=== PATIENT | male | born 1980 | race Caucasian/White ===

== ENCOUNTER 2024-09-08 21:23 | Inpatient (IN) | payer OTHER, SELFPAY ==
[2024-09-08 15:22] VITALS: BP 134/95
[2024-09-08 16:20] LABS: % Basophils 0.2 % (0-2); % Eosinophils 0.3 % (0-6); % Immature Granulocytes 0.4 % (0-0.5); % Lymphocytes 12.2 % (20.5-51.1); % Neutrophils 79.9 % (42.2-75.2); Absolute Eosinophils 0.1 10^3/uL (0-0.7); Absolute Immature Granulocytes 0.1 10^3/uL (0-0.05); Absolute Lymphocytes 2.2 10^3/uL (1.2-3.4); Absolute Monocytes 1.3 10^3/uL (0.1-0.6); Absolute Neutrophils 14.2 10^3/uL (1.4-6.5); Hematocrit 41.8 % (39.0-52.0); Hemoglobin 14.6 g/dL (13.0-18.0); Mean Corp Hgb Conc. 34.9 g/dL (33.0-37.0); Mean Corpuscular Hgb 30.8 pg (27.0-31.0); Mean Corpuscular Volume 88.2 fL (80.0-94.0); Mean Platelet Volume 9.4 fL (7.4-10.4); Nucleated Red Blood Cells % 0 % (-); Platelet Count 273 10^3/uL (130-400); Red Blood Cell Count 4.74 10^6/uL (4.70-6.10); White Blood Cell Count 17.8 10^3/uL (4.8-10.8)
[2024-09-08 16:25] LABS: ALT (SGPT) 21 U/L (0-50); AST (SGOT) 18 U/L (17-59); Albumin 4.5 g/dl (3.5-5.0); Alkaline Phosphatase 83 U/L (38-126); Blood Urea Nitrogen 8 mg/dl (9-20); Calcium 9.2 mg/dl (8.4-10.2); Carbon Dioxide 26 mmol/L (22-30); Chloride 103 mmol/L (98-107); Glucose 102 mg/dl (70-99); Sodium 139 mmol/L (135-145); Total Bilirubin 0.7 mg/dl (0.2-1.3); Total Protein 6.7 g/dl (6.3-8.2); eGFR > 60.00
[2024-09-08 17:41] VITALS: BMI 33.6
[2024-09-08 17:49] VITALS: BP 115/72
--- NOTE | 2024-09-08 19:16 | ED.GENMED ---
History of Present Illness
General
Chief Complaint: Skin Problem
Source: patient
Exam Limitations: none
Time Seen by Provider: 09/08/24 17:06
Nursing documentation reviewed up to this point in time: agreed with
History of Present Illness
History of Present Illness:
43-year-old male with history as document presents to the emergency room for evaluation of rectal pain. Patient is history of rectal abscess and fistula and has been followed with Dr. Sheffield in the past. He says that he was shoveling snow earlier
this week and when he went to bed he noticed some slight pain in his rectum. He says this pain has worsened since then yesterday went to urgent care was told he has developing abscess and started on Bactrim and he took 1 dose. This morning pain
was much more severe and he discussed with Dr. Sheffield was recommended to come to the ER for evaluation. He denies any fevers or chills. He denies any abdominal pain. He denies any drainage. Denies any other complaints.
Past History
Past History
ED Past Medical History: Other (perianal abscess)
ED Past Surgical History: Other (hernia as child, perianal abscess drainages)
Social History
Tobacco: Smoker
Drug: None
Personal:
Living: with family
Employment: Employed
Review of Systems
Review of Systems
All Other Systems: ROS reviewed and negative except as documented in HPI and ROS
Constitutional: Denies fever or chills
Respiratory: Denies trouble breathing
Cardiac: Denies chest pain
ABD/GI: Reports other (Rectal pain); Denies abdominal pain or vomiting
: Denies flank pain
Musculoskeletal: Denies neck pain or back pain
Neurological: Denies headache
Phy Exam
Physical Exam
Physical Exam:
General: Awake, alert, oriented x3; no acute distress
Head: Normocephalic, atraumatic
Eyes: Conjunctiva normal
Throat: Airway intact, handling secretions
Neck: Trachea midline, supple without meningismus
Lungs: Breathing comfortably no distress
Heart: Tachycardia
Abd: Soft, non distended, nontender
Rectal: Patient has area of warmth and induration, redness at approximately 5 o'clock position directly adjacent to the anal verge and this area is exquisitely tender to the touch, no pustular drainage noted, no erythema the surrounding buttock
Neuro: No gross deficits
Extremities: Warm well-perfused
Scores
Heart Failure Risk
Heart Failure Risk Score: Not Applicable
Heart Score for Chest Pain Patients
STEMI patient?: Not applicable
Withdrawal Assessment of Alcohol
Withdrawal Assessment Completed?: Not applicable
Course
Orders/Labs/Results
Orders:
Orders
09/08/24 15:49
CMP [Comprehensive Metabolic Panel] Urgent
Complete Blood Count/With Diff Urgent
09/08/24 17:35
CT Pelvis With Iv Contrast Urgent
Comment:
Reason For Exam: rectal pain, c/f abscess
09/08/24 17:48
Blood Culture Q30M
DALY Source: Blood/Venous
Specimen Description:
Blood Culture Q30M
DALY Source: Blood/Venous
Specimen Description:
09/08/24 17:49
Diphenhydramine [Benadryl] 50 mg IV NOW STA
Hydrocortisone Sod Succinate [Solu-Cortef] 200 mg IV NOW STA
09/08/24 19:15
ColoRectal Surgery Consult Urgent
Consulting Provider: Gt Sheffield
Was physician already notified: Yes
Piperacillin/Tazo 3.375 Gram [Zosyn] 3.375 gram in 50 ml IV NOW
09/08/24 19:16
Ketorolac [Toradol] 15 mg IV NOW STA
Abnormal Lab Results
09/08/24
15:49
WBC 17.8 H 10^3/uL
(4.8-10.8)
Abs Immat Gran (auto) 0.1 H 10^3/uL
(0-0.05)
Absolute Neuts (auto) 14.2 H 10^3/uL
(1.4-6.5)
Absolute Monos (auto) 1.3 H 10^3/uL
(0.1-0.6)
Neutrophils % 79.9 H %
(42.2-75.2)
Lymphocytes % 12.2 L %
(20.5-51.1)
BUN 8 L mg/dl
(9-20)
Glucose 102 H mg/dl
(70-99)
09/08/24 15:49
09/08/24 15:49
Vital Signs
Initial and Last Documented VS:
Initial Vital Signs
Temp Pulse Resp BP Pulse Ox
37.6 C 110 16 134/95 99
09/08/24 15:22 09/08/24 15:22 09/08/24 15:22 09/08/24 15:22 09/08/24 15:22
Last Documented Vital Signs
Temp Pulse Resp BP Pulse Ox
37.6 C 93 18 115/72 97
09/08/24 15:22 09/08/24 17:49 09/08/24 17:49 09/08/24 17:49 09/08/24 17:49
MDM/Problems Addressed
Differential Diagnosis Includes:
Perirectal abscess
MDM/Problems Addressed:
43-year-old male presents with rectal pain consistent with prior pararectal abscesses. Took 1 dose of Bactrim last night but symptoms have been worsening and so he was referred by colorectal surgeon. Vitals and exam as above�notably tachycardic.
He had labs sent in triage which showed a leukocytosis to 17.8. Send off blood cultures. Check CT pelvis. Discussed with colorectal surgery agreed with CT if significant abscess plan for admission for OR drainage.
CT shows 3.6 cm complex perianal abscess. Will treat with Zosyn. Discussed with colorectal surgery will admit to hospitalist service, n.p.o. at midnight with plan for OR tomorrow. Case discussed with hospitalist.
*Radiology
Radiology exam reviewed: radiology read reviewed
*Pulse Oximetry
Patient hypoxic: no
*Critical Care Note
Total Time (30-74mins, 75-104mins- exclusive of procedures): Not Applicable
Data Reviewed
Review of Other/Old Records Reveals: Labs and Records
Source: patient, records and physician
Patient Management
Discussion with other providers: Hospitalist (Discussed with hospitalist) and [employer] (Discussed with colorectal surgeon)
Escalation/DeEscalation of care consider admission/obs:
Admission indicated
ED Attending Note
-
Portions of this chart may have been created with voice recognition software.� Occasional wrong word or��sound alike� substitutions may have occurred due to the inherent limitations of voice recognition software.
Discharge Plan
Departure
Patient Disposition: Admit
Date of Disposition: 09/08/24
Time of Disposition: 19:21
Admit to doctor: Emeka
Presentation/result/management discussed w/ accepting MD/DO: Hospitalist
Discharge Problem:
Perianal abscess
Prescriptions:
No Action
No Current Medications
0
Referrals:
UNKNOWN - PT DOES,NOT KNOW [Family Provider] -
Interventions
Interventions:
*Risk Screen - Suicide Last Done: 09/08/24 15:22
*General Assessment Last Done: 09/08/24 15:22
*Neglect/Abuse Screening Last Done: 09/08/24 15:22
ED- Fall Risk Assessment Last Done: 09/08/24 17:42
*ED COVID-19 Vaccine History Last Done: 09/08/24 15:22
ED-Skin Assessment Last Done: 09/08/24 18:00
Discharge Date and Time
Print Language: ECUADOREAN
[2024-09-08] MEDS: TORADOL 15 MG IV (19:22)
[2024-09-08] MEDS: ZOSYN 50 IV (19:23)
[2024-09-08 19:26] VITALS: BP 119/75
--- NOTE | 2024-09-08 20:46 | HPS.HSE ---
Family Physician
-
Family Physician: NOT KNOW UNKNOWN - PT DOES
Chief Complaint
-
Rectal pain
History of Present Illness
This is a 42-year-old with past medical history significant for rectal abscess and fistula who has been followed by surgery in the past.
Patient reports that he had noticed some slight pain in his rectal area starting about a week ago. Initially it was mild and he ignored it. The pain worsened since yesterday and went to urgent care when he was told that he with developed abscess
and was started on Bactrim. He took a dose of Bactrim yesterday and this morning without improvement. The pain was worse. He denied having any fevers or chills. He denied having any constipation or diarrhea. He had no nausea or vomiting. He
discussed this with Dr. Krueger who recommended ED evaluation.
Patient reports a similar episode about 2 or 3 years ago that required surgical intervention.
In the emergency department he had a Tmax of 100.9, blood pressure was 120/75 and was satting 97% on room air. Labs showed leukocytosis to 17,000 with normal hemoglobin and platelet. Electrolytes BUN/creatinine were within the normal range and
unremarkable. CT of the pelvis showed 3.6 cm complex right anterolateral perianal abscess.
Medical History
Past Medical History
Past Medical History: Reports Other (rectal abscess )
Past Surgical History: Reports Other (rectal abscess surgery)
Social History
Tobacco: Smoker
Alcohol: Occasional
Drug: None
Personal:
Living: With Family
Employment: Employed
Family History
Family History: Not pertinent
Allergies / Home Medications
Allergies reflects when Allergies were last updated in [employer].
Home Medications with original date entered in [employer]
Allergy/Medication List:
Allergies
Allergy/AdvReac Type Severity Reaction Status Date / Time
No Known Allergies Allergy Verified 09/08/24 17:56
Home Medications
No Meds [No Current Medications] 09/08/24
Review of Systems
-
History Source: Patient
Constitutional: Reports No Symptoms
EENT: Reports No Symptoms
Respiratory: Reports No Symptoms
Cardiac: Reports No Symptoms
Abdomen/GI: Reports Other (rectal pain)
: Reports No Symptoms
Musculoskeletal: Reports No Symptoms
Skin: Reports No Symptoms
Neurological: Reports No Symptoms
Endocrine: Reports No Symptoms
Hematologic/Lymphatic: Reports No Symptoms
Psych: Reports No Symptoms
Physical Exam
Vital Signs
Vital Signs
Temp Pulse Resp BP Pulse Ox
99.7 F 99 16 119/75 97
09/08/24 15:22 09/08/24 19:26 09/08/24 19:26 09/08/24 19:26 09/08/24 19:26
Physical Exam
General: Well Developed, Well Nourished, No Apparent Distress and Comfortable
HEENT: NormoCephalic, Anicteric, Moist mucous membranes and Atraumatic
Respiratory: Clear
Cardiac: S1/S2 and Regular Rhythm
GI: Soft, Non Tender, Non Distended and Normal Bowel Sounds
Rectal: Deferred by Provider
Genito-urinary: Deferred by me
Musculoskeletal: No Clubbing, No Cyanosis and No Edema
Skin: Warm
Neuro: AO x 3 and Nonfocal/grossly intact
Hematologic/Lymphatic: No Lymphadenopathy
Psych: Calm
Laboratory Results
-
09/08/24 15:49
09/08/24 15:49
Laboratory Results
Total Bilirubin 0.7 mg/dl (0.2-1.3) 09/08/24 15:49
AST 18 U/L (17-59) 09/08/24 15:49
ALT 21 U/L (0-50) 09/08/24 15:49
Alkaline Phosphatase 83 U/L (38-126) 09/08/24 15:49
Data Reviewed
-
CT Scan: Report Reviewed by me
Lab Data: Labs Reviewed by me
Old Records: Reviewed
Impression/Plan
-
IMPRESSION:
43 y.o with 3.6 cm complex RIGHT ANTEROLATERAL PERIANAL ABSCESS. Low grade temps and leukocytosis but no sepsis.
PLAN:
1. Perianal abscess
- admit to med/surg
- npo after midnight
- Zosyn
- lactated ringers
- pain control
- DVT PPX with lovenox starting tomorrow evening
Code status - full code
[2024-09-08 21:40] VITALS: BP 121/59; BMI 33.0
[2024-09-08] MEDS: DILAUDID 0.5 MG IV (21:57)
[2024-09-08] MEDS: LR 1000 IV (21:59)
--- NOTE | 2024-09-08 22:20 | PTCARENOTE ---
Addendum entered by Valentina Escobedo RN 09/08/24 22:26:
Skin check done with Breonna Rao RN. No open areas noted. Psoriatic lesions on elbows noted.
Original Note:
Pt admitted to unit. Reviewed all admission questions with pt. Walked to bed w/o assist. Gait steady. Pt A&Ox4. Moves all extremities. PERRLA 3. Endorses (+) sensation x4. RA. Palpable pulses x4. RRR. (-) edema. Abd soft, nontender, round. Area of
erythema noted to L buttocks. Slight firmness noted. Pt states this is the 4th occurrence of an abscess. Pt able to use urinal or walk to bathroom. Dilaudid given as ordered for pain 5-01/26. IVF initiated. No s/s of distress assessed. Will continue
to monitor.
[2024-09-08 22:37] VITALS: BP 98/65
[2024-09-09] VITALS (10 sets, daily range): BP systolic 103–134; BP diastolic 61–85; BMI 33.0
[2024-09-09] MEDS: DILAUDID 0.5 MG IV ×2 (02:13→08:39)
--- NOTE | 2024-09-09 02:20 | DOWNTIME ---
There was a [employer] Client Diet Clerk Downtime on 09/09/2024 from 0100 to 09/09/2023 at 0205 . Downtime documentation of patient's care, including medication administrations, has been reconciled in the electronic record per guidelines. Refer to the
patient's paper chart under the miscellaneous tab to see printed paper medication records and downtime forms.
[2024-09-09] MEDS: TORADOL 10 MG IV (05:20)
[2024-09-09] MEDS: LR 1000 IV ×2 (05:24→18:49)
--- NOTE | 2024-09-09 06:58 | CON.CRS ---
Consultation
-
Reason for Consultation: perirectal abscess
Medical History
-
Chief Complaint: anal pain and fever
History of Present Illness:
43 yo M well known to me with history of perirectal abscesses requiring intraoperative drainage in 2017, 2020, and 2021 by me here with complaints of anal pain and fever which started a week ago. Went to Urgent Care and put on Bactrim but symptoms
persist and came to ER. Found in ER to have leukocytosis and fever. CT confirms R anterior perianal/perirectal abscess.
Past Medical History
Past Medical History: Other (sleep apnea)
Past Surgical History: Hernia Repair (RIH repair) and Other (3 prior perirectal abscess drainages)
Social History
Tobacco: Smoker
Alcohol: Occasional
Employment: Employed
Family History
Family History: Reviewed & Not Pertinent
Allergies / Home Medications
Allergy/AdvReac Type Severity Reaction Status Date / Time
No Known Allergies Allergy Verified 09/08/24 17:56
�Medication �Instructions �Recorded �Confirmed �Type
No Meds [No Current Medications] 09/08/24 09/08/24 History
Review of Systems
-
A 10 point review of systems was completed, and was negative except as per HPI.
Physical Exam
Vital Signs
Temp 100.4 F H 09/08/24 22:37
Pulse 93 09/08/24 22:37
Resp Rate 18 09/08/24 22:37
Blood pressure 98/65 09/08/24 22:37
SaO2 96 09/09/24 05:55
09/07/24 09/08/24 09/09/24
06:59 06:59 06:59
Actual Weight 101.333 kg
Body Mass Index (BMI) 33.0
Lab Results / Allergies
WBC 17.8 10^3/uL (4.8-10.8) H 09/08/24 15:49
Hgb 14.6 g/dL (13.0-18.0) 09/08/24 15:49
Hct 41.8 % (39.0-52.0) 09/08/24 15:49
Plt Count 273 10^3/uL (130-400) 09/08/24 15:49
Abs Immat Gran (auto) 0.1 10^3/uL (0-0.05) H 09/08/24 15:49
Neutrophils % 79.9 % (42.2-75.2) H 09/08/24 15:49
Allergy/AdvReac Type Severity Reaction Status Date / Time
No Known Allergies Allergy Verified 09/08/24 17:56
Physical Exam
General: Well Developed
Respiratory: Clear
Cardiac: Regular Rhythm
GI: Soft, Non Tender and Non Distended
Rectal: Other (erythema and tenderness in R anterior location)
Neuro: AO x 3
Psych: Calm
Data Reviewed
-
CT Scan: Image Personally Visualized and interpreted, Report Reviewed by me and Discussed with Patient
Labs: Labs Reviewed by me and Discussed with Patient
Assessment / Plan
-
Perirectal abscess.
Agree with antibiotics. Recommended trip to OR later today for I and D. Risks and benefits discussed and he agrees to proceed.
[2024-09-09 08:15] LABS: Hematocrit 39.1 % (39.0-52.0); Hemoglobin 13.5 g/dL (13.0-18.0); Mean Corp Hgb Conc. 34.5 g/dL (33.0-37.0); Mean Corpuscular Hgb 30.3 pg (27.0-31.0); Mean Corpuscular Volume 87.9 fL (80.0-94.0); Mean Platelet Volume 9.8 fL (7.4-10.4); Platelet Count 252 10^3/uL (130-400); Red Blood Cell Count 4.45 10^6/uL (4.70-6.10); Red Cell Dist. Width 13.1 % (11.5-14.5)
[2024-09-09 08:24] LABS: INR 0.95; PT 13.2 Sec (11.4-14.6)
[2024-09-09 08:25] LABS: APTT 39.9 Sec (23.4-35.0)
[2024-09-09 08:33] LABS: Blood Urea Nitrogen 9 mg/dl (9-20); Calcium 8.8 mg/dl (8.4-10.2); Carbon Dioxide 23 mmol/L (22-30); Chloride 102 mmol/L (98-107); Estimated Creatinine Clearance 124 ml/min; Glucose 92 mg/dl (70-99); Potassium 3.7 mmol/L (3.5-5.1); Sodium 135 mmol/L (135-145); eGFR > 60.00
[2024-09-09] MEDS: MORPHINE SULFATE 2 MG IV (10:47)
--- NOTE | 2024-09-09 11:17 | CM ---
Met with pt at bedside
Pt reports he lives with his and daughter in a 2 story home; 2 steps to enter, 12 steps to 2nd fl
Independent, employed, drives
DME - CPAP - [facility]
SNF/HH - denies past hx
Has ride home at discharge
PCP - Alexandra Veloz
Pharm - [facility]
Plan - anticipate home no needs when medically stable
--- NOTE | 2024-09-09 12:02 | W.PN.HOSP.TC ---
Today's Communication/Plan
-
N.p.o. for I&D later today
Continue IV Zosyn for now
Consider fistulogram
Start morphine for moderate to severe pain
Assessment / Plan
Assessment / Plan
#Perianal abscess
#H/O perianal fistula with abscesses x 3
-Presented as pain at site of previous abscess, went to urgent care Saturday
-Subsequent worsening with palpable lesion by this past Saturday
-Clinically consistent with recurrent abscess, was started on IV Zosyn
-Denies any history or concerning symptoms for Crohn's disease
-Colorectal surgery consulted, plan for I&D later today
-Added morphine as needed for moderate to severe pain
-Continue Zosyn and supportive IVF
-Consider fistulogram, will defer to colorectal team
DVT prophylaxis: Lovenox to start after I&D
Diet: N.p.o. pending procedure, regular thereafter
CODE STATUS: Full code
Anticipated Discharge: 24 - 48 hours
Subjective/Interval History
-
Date of Service: September 09, 2024
Seen and examined at the bedside. No acute events reported since admission. AFVSS this morning
States that he has had 3 previous rectal abscesses in the similar spot, hypothesized to be recurrent with known fistula
Denies any history of hematochezia, frequent diarrhea, weight loss, other signs or symptoms concerning for Crohn's disease
Denies any acute complaints. Pain currently not responding to Toradol or Tylenol
Objective Data
-
Labs:
Laboratory Results
09/09/24
06:44
WBC 19.0 H
Hgb 13.5
Hct 39.1
Plt Count 252
PT 13.2
INR 0.95
APTT 39.9 H
Sodium 135
Potassium 3.7
Chloride 102
Carbon Dioxide 23
BUN 9
Creatinine 0.9
Glucose 92
Calcium 8.8
Vital Signs:
Vital Signs
Temp Pulse Resp BP Pulse Ox
97.9 F 97 16 128/76 95
09/09/24 07:13 09/09/24 07:13 09/09/24 07:13 09/09/24 07:13 09/09/24 07:13
I&O
09/08/24 09/09/24 09/10/24
06:59 06:59 06:59
Intake Total 480 / 480
Balance 480 / 480
Review of Systems
-
History Source: Patient
All other systems: Reviewed and negative
Physical Exam
-
General: Well Developed, Well Nourished, No Apparent Distress and Comfortable
HEENT: Normocephalic, Atraumatic, Moist Mucous Membranes and Anicteric
Respiratory: Clear to Auscultation and Non Labored Respirations
Cardiac: Regular Rhythm and S1/S2; Negative Murmur, Rub or Gallop
GI: Soft, Nontender, Nondistended and Normal Bowel Sounds
Rectal: Masses Palpated (Fluctuant mass at the anterolateral right perianal region)
Musculoskeletal: No Clubbing, No Cyanosis and No Edema
Skin: Warm and Dry; Negative Rash
Neuro: AO x 3 and Nonfocal/Grossly Intact
Psych: Calm
Data Reviewed
-
Labs: Labs Reviewed by me, Discussed with Physician (Colorectal surgery) and Discussed with Patient
--- NOTE | 2024-09-09 16:59 | W.IMMPOSTOP ---
Addendum entered and electronically signed by Gt Sheffield MD 09/09/24 17:07:
Patient's Tri updated via phone conversation.
Original Note:
Surgical Immed Post Op Note
-
Primary Surgeon: Ekaterina Sheffield MD
Assisting Surgeon: none
Pre-op Diagnosis: perirectal abscess
Post-op Diagnosis: same
Procedure Performed: incision and drainage perirectal abscess
Anesthesia Type: MAC plus local
Specimen / Cultures: abscess cultures
Estimated Blood Loss: 10 cc
Complications: no immediate
Operative Findings: 1) R anterior perirectal abscess 2) unable to internal opening for presumed fistula
Packed with 1/4 inch ribbon gauze and covered with 4 by 4s and mesh panties.
Will continue Zosyn.
Resuming diet.
[2024-09-09] MEDS: LOVENOX 40 MG SC (18:49)
--- NOTE | 2024-09-09 19:56 | PTCARENOTE ---
Received patient from PACU around 1814 via bed in stable condition. Patient denied pain. Call goldsmith in reach.
[2024-09-09] MEDS: ZOSYN 50 IV (22:27)
[2024-09-09] MEDS: FLUSH (NSS) 2 FLUSH IV (22:40)
[2024-09-10 03:00] VITALS: BP 136/80
[2024-09-10] MEDS: ZOSYN 50 IV ×2 (04:18→09:50)
[2024-09-10 06:12] LABS: % Basophils 0.1 % (0-2); % Immature Granulocytes 0.7 % (0-0.5); % Lymphocytes 7.5 % (20.5-51.1); % Monocytes 3.1 % (1.7-9.3); % Neutrophils 88.6 % (42.2-75.2); Absolute Immature Granulocytes 0.1 10^3/uL (0-0.05); Absolute Lymphocytes 1.1 10^3/uL (1.2-3.4); Absolute Monocytes 0.5 10^3/uL (0.1-0.6); Absolute Neutrophils 12.9 10^3/uL (1.4-6.5); Hematocrit 39.7 % (39.0-52.0); Hemoglobin 13.4 g/dL (13.0-18.0); Mean Corp Hgb Conc. 33.8 g/dL (33.0-37.0); Mean Corpuscular Hgb 30.3 pg (27.0-31.0); Mean Corpuscular Volume 89.8 fL (80.0-94.0); Mean Platelet Volume 9.9 fL (7.4-10.4); Nucleated Red Blood Cells % 0 % (-); Platelet Count 263 10^3/uL (130-400); Red Blood Cell Count 4.42 10^6/uL (4.70-6.10); Red Cell Dist. Width 12.8 % (11.5-14.5); White Blood Cell Count 14.6 10^3/uL (4.8-10.8)
[2024-09-10 06:42] LABS: Blood Urea Nitrogen 12 mg/dl (9-20); Carbon Dioxide 27 mmol/L (22-30); Chloride 103 mmol/L (98-107); Estimated Creatinine Clearance > 125 ml/min; Glucose 133 mg/dl (70-99); Potassium 4.8 mmol/L (3.5-5.1); Sodium 139 mmol/L (135-145); eGFR > 60.00
[2024-09-10 07:14] VITALS: BP 127/82
--- NOTE | 2024-09-10 10:20 | W.PN.HOSP.TC ---
Today's Communication/Plan
-
Transition to oral antibiotic complete 10 days
Discharge
OP follow-up
Assessment / Plan
Assessment / Plan
#Perianal abscess
#H/O perianal fistula with abscesses x 3
-Presented as pain at site of previous abscess, went to urgent care Saturday
-Subsequent worsening with palpable lesion by this past Saturday
-Clinically consistent with recurrent abscess, was started on IV Zosyn
-Denies any history or concerning symptoms for Crohn's disease
-Colorectal surgery consulted, plan for I&D later today
-Added morphine as needed for moderate to severe pain
-Transition Zosyn to oral antibiotic to complete 10 days
DVT prophylaxis: Lovenox
Diet: Regular
CODE STATUS: Full code
Anticipated Discharge: Today
Subjective/Interval History
-
Date of Service: September 10, 2024
Seen and examined at bedside. No acute events overnight. AFVSS this morning
POD #1 from perianal abscess I&D. Pain is much improved today, patient states he feels generally well.
Denies any new complaints. Says he would like to go home
Objective Data
-
Labs:
Laboratory Results
09/10/24
04:55
WBC 14.6 H
Hgb 13.4
Hct 39.7
Plt Count 263
Sodium 139
Potassium 4.8 D
Chloride 103
Carbon Dioxide 27
BUN 12
Creatinine 0.7
Glucose 133 H
Calcium 9.0
Vital Signs:
Vital Signs
Temp Pulse Resp BP Pulse Ox
97.5 F 82 16 127/82 98
09/10/24 07:14 09/10/24 07:14 09/10/24 07:14 09/10/24 07:14 09/10/24 09:30
I&O
09/09/24 09/10/24 09/11/24
06:59 06:59 06:59
Intake Total 480 / 480 1420 / 1420
Balance 480 / 480 1420 / 1420
Review of Systems
-
History Source: Patient
All other systems: Reviewed and negative
Physical Exam
-
General: Well Developed, Well Nourished, No Apparent Distress and Comfortable
HEENT: Normocephalic, Atraumatic, Moist Mucous Membranes and Anicteric
Respiratory: Clear to Auscultation and Non Labored Respirations
Cardiac: Regular Rhythm and S1/S2; Negative Murmur, Rub or Gallop
GI: Soft, Nontender, Nondistended and Normal Bowel Sounds
Musculoskeletal: No Clubbing, No Cyanosis and No Edema
Skin: Warm, Dry, Normal Turgor and Other (Site of I&D without purulence or significant erythema); Negative Rash
Neuro: AO x 3 and Nonfocal/Grossly Intact
Psych: Calm
Data Reviewed
-
Labs: Labs Reviewed by me and Discussed with Patient
--- NOTE | 2024-09-10 10:54 | W.PN.CRS1 ---
Today's Communication / Plan
-
Finish antibiotic course
Packing removed at bedside
Okay from discharge from our perspective
Assessment/Plan
-
POD#1 incision and drainage perirectal abscess
-WBC 14.6 as expected postop. Afebrile.
-Daily fiber and stool softeners
-Finished course of oral antibiotics as an outpatient
-Sitz bath twice daily for 7 days
-Follow-up with Dr. Sheffield in the office in 3 to 4 weeks
-Okay for discharge from our perspective, wound care discussed with the patient as well as medications. OR packing removed at bedside.
Subjective Data
Procedure
09/09/24- incision and drainage perirectal abscess
Subjective Data
Date of Service: September 10, 2024
Patient states he feels well. His pain is controlled. He has no issues with urination. He had a bowel movement this morning.
Objective Data
-
Vital Signs
Temp Pulse Resp BP Pulse Ox
97.5 F 82 16 127/82 98
09/10/24 07:14 09/10/24 07:14 09/10/24 07:14 09/10/24 07:14 09/10/24 09:30
Intake & Output
09/09/24 09/10/24 09/11/24
06:59 06:59 06:59
Intake Total 480 / 480 1420 / 1420
Balance 480 / 480 1420 / 1420
Intake:
Oral fluids 480 / 480 120 / 120
IV fluids (Total) 1200 / 1200
normosol 100 / 100
IV piggybacks 100 / 100
Other:
Number of approximated MODERATE 2 3
amounts of urine
Lab Results
09/10/24 04:55
09/10/24 04:55
Physical Exam
-
General: No Acute Distress and AOx3
Abdomen: Soft, Non Distended and Non Tender
Wound: Other (packing removed, c/d/i, no erythema)
[2024-09-10 11:02] VITALS: BP 130/74
--- NOTE | 2024-09-10 12:15 | W.DCSUMMARY ---
Discharge Summary
Discharge Data
Date of Admission: 09/08/24
Date of Discharge: 09/10/24
-
Pending Results: No
Hospital Course
43-year-old male with 3 previous perianal abscesses and perianal fistula, no history of Crohn's disease that presented to the hospital with perirectal pain and fluctuance concerning for recurrent abscess. Imaging did show perianal abscess in the
right anterolateral position. Was started on IV Zosyn for antimicrobial therapy. Evaluated by colorectal surgery that performed incision and drainage on 09/09/2024. Was monitored after the procedure and deemed stable. Was transitioned to
Augmentin 875-125 mg every 12 hours to complete 10 days of antibiotics.�Follow-up in office with family doctor (referral provided if needed) and colorectal surgeon Dr. Sheffield.
Of note, patient denied any signs or symptoms concerning for underlying Crohn's disease. Could have consideration for fistulogram if deemed appropriate by colorectal surgery.
Discharge Plan
-
Patient Disposition: Home (Routine Discharge)
Discharge Diagnosis/Procedures: Perianal abscess
Incision and drainage
Condition: Good
Diet: No restrictions
Activity: As tolerated
Driving Restrictions: As prior to admission
Bathing Restrictions: After dressing removed
Blood Work: None
Others Tests: None
Activity Restrictions/Additional Instructions:
After discharge from the hospital schedule follow-up appointment with family physician. Referral for family doctor was provided below
You will also need to follow-up in office with colorectal surgery. Referral below for Dr. Sheffield, call office to schedule
Instructions: Anal abscess and fistula
Referrals:
Gt Sheffield MD [Active] - in two weeks
Moses Montoya MD, Resident [Family Practice Resident Year2] - in two weeks
UNKNOWN - PT DOES,NOT KNOW [Family Provider] -
Additional Discharge Medication Instructions: Continue Augmentin 875-125 mg every 12 hours for 8 more days after discharge to complete 10 total days of antibiotic
Prescriptions:
New
amoxicillin-pot clavulanate 875-125 mg tablet
1 tab PO Q12H 8 Days Qty: 16 0RF
Discharge Orders:
Discharge Patient (As Directed); Ordered 09/10/24
Ordered By: Kit Branham
Discharge Date and Time
Print Language: GUATEMALAN
== END 2024-09-10 13:00 | disposition home or self-care (01) | DRG 346 ==
LOC: 2 SOUTH 21:23
PROVIDERS: Emergency Medicine; ADMITTING PHYSICIAN Internal Medicine; ATTENDING PHYSICIAN Internal Medicine; CONSULT PHYSICIAN Surgery; EMERGENCY PHYSICIAN Emergency Medicine
PROC: 0D9P0ZZ Drainage of Rectum, Open Approach (ICD-10-PCS; 2024-09-09)
DX: K61.2 Anorectal abscess (principal); K64.8 Other hemorrhoids; D72.829 Elevated white blood cell count, unspecified; F17.200 Nicotine dependence, unspecified, uncomplicated; G47.30 Sleep apnea, unspecified
CPT/HCPCS: 72193; 80048; 80053; 85025; 85027; 85610; 85730; 87040; 87070; 87075; 87077; 87147; 87205; 96365; 96375; 99285; 99406; Q9967

== ENCOUNTER 2025-07-27 07:47 | Emergency (ER) | payer OTHER, SELFPAY ==
[2025-07-27 07:48] VITALS: BP 155/97
--- NOTE | 2025-07-27 08:43 | ED.GENMED ---
History of Present Illness
General
Chief Complaint: Anal/Rectal Problem
Source: patient
Exam Limitations: none
Time Seen by Provider: 07/27/25 08:25
History of Present Illness
History of Present Illness:
44-year-old male presents complaining of 3 to 4 days worth of worsening perianal pain. He has a history of perianal abscess with fistula that has required OR incision and drainage by colorectal. He is hoping to get to this sooner than he has in
the past. He denies fevers or vomiting. He denies any drainage. He does not take any medications daily. No other complaints at this time
Past History
Past History
ED Past Medical History: Other (perianal abscess)
ED Past Surgical History: Other (hernia as child, perianal abscess drainages)
Social History
Tobacco: Smoker
Drug: None
Personal:
Living: with family
Employment: Employed
Phy Exam
Physical Exam
Physical Exam:
General: Well-appearing male no acute respiratory distress
HEENT: Normal cephalic atraumatic heart: Regular rate and rhythm
Lungs: Clear no wheeze
Abdomen soft nontender
Rectal exam: Tenderness noted over the right perianal area however no obvious external fluctuance. There is a small amount of swelling noted.
Course
Orders/Labs/Results
Orders:
Orders
07/27/25 08:35
CT Pelvis With Iv Contrast Urgent
Comment:
Reason For Exam: perianal pain/swelling
07/27/25 09:11
Complete Blood Count/With Diff Urgent
Comprehensive Metabolic Panel Urgent
Abnormal Lab Results
07/27/25
09:11
WBC 13.9 H 10^3/uL
(4.8-10.8)
RBC 4.63 L 10^6/uL
(4.70-6.10)
Abs Immat Gran (auto) 0.2 H 10^3/uL
(0-0.05)
Absolute Neuts (auto) 10.5 H 10^3/uL
(1.4-6.5)
Absolute Monos (auto) 0.8 H 10^3/uL
(0.1-0.6)
Immature Gran % 1.5 H %
(0-0.5)
Neutrophils % 75.3 H %
(42.2-75.2)
Lymphocytes % 16.4 L %
(20.5-51.1)
BUN 7 L mg/dl
(9-20)
07/27/25 09:11
07/27/25 09:11
Vital Signs
Initial and Last Documented VS:
Initial Vital Signs
Temp Pulse Resp BP Pulse Ox
98.3 F 104 18 155/97 100
07/27/25 07:48 07/27/25 07:48 07/27/25 07:48 07/27/25 07:48 07/27/25 07:48
Last Documented Vital Signs
Temp Pulse Resp BP Pulse Ox
98.3 F 85 16 127/90 95
07/27/25 07:48 07/27/25 09:16 07/27/25 09:16 07/27/25 09:16 07/27/25 09:16
MDM/Problems Addressed
Differential Diagnosis Includes:
Patient with perianal pain. History of perianal abscess with fistulous. He feels this is very similar to prior presentations. On exam nothing overtly clear externally to drain but question possible deeper abscess. Will obtain CT of the pelvis
and check labs
*Pulse Oximetry
SaO2: 100
Oxygen Mode of Delivery: Room air
Patient hypoxic: no
*Critical Care Note
Total Time (30-74mins, 75-104mins- exclusive of procedures): Not Applicable
Update Note
Update Note:
Patient has CT scan of the pelvis which demonstrates small attenuation focus in the perianal region where a small abscess was seen previously. No new abscess appreciated. At this point nothing to drain. Will start on Augmentin. Return
precautions were given.
ED Attending Note
-
Portions of this chart may have been created with voice recognition software.� Occasional wrong word or��sound alike� substitutions may have occurred due to the inherent limitations of voice recognition software.
Discharge Plan
Departure
Patient Disposition: Home (Routine Discharge)
Date of Disposition: 07/27/25
Time of Disposition: 12:13
Patient with high blood pressure during this ER visit?: No
Discharge Problem:
Perianal abscess
Instructions: How to Do a Sitz Bath
Prescriptions:
New
amoxicillin-pot clavulanate 875-125 mg tablet
1 tab PO BID Qty: 14 0RF
No Action
amoxicillin-pot clavulanate 875-125 mg tablet
1 tab PO Q12H 8 Days Qty: 16 0RF
Referrals:
UNKNOWN - PT DOES,NOT KNOW [Family Provider]
Activity Restrictions/Additional Instructions:
Use antibiotic as directed. Use warm compresses or soaks to the area. Please return here if worse. Follow-up with your colorectal specialist otherwise
Interventions
Interventions:
*Risk Screen - Suicide Last Done: 07/27/25 07:48
*General Assessment Last Done: 07/27/25 09:12
*Neglect/Abuse Screening Last Done: 07/27/25 09:12
*ED COVID-19 Vaccine History Last Done: 07/27/25 09:12
*ED Influenza Vaccine History Last Done: 07/27/25 09:12
[facility] Fall Risk Assessment Tool Last Done: 07/27/25 09:12
ED-Skin Assessment Last Done: 07/27/25 09:12
Discharge Date and Time
Print Language: HAITIAN
[2025-07-27 09:12] VITALS: BMI 32.2
[2025-07-27 09:16] VITALS: BP 127/90
[2025-07-27 09:22] LABS: Hematocrit 41.1 % (39.0-52.0); Hemoglobin 13.9 g/dL (13.0-18.0); Mean Corp Hgb Conc. 33.8 g/dL (33.0-37.0); Mean Corpuscular Volume 88.8 fL (80.0-94.0); Nucleated Red Blood Cells % 0 % (-); Platelet Count 285 10^3/uL (130-400); Red Cell Dist. Width 13.3 % (11.5-14.5)
[2025-07-27 09:49] LABS: ALT (SGPT) 17 U/L (0-50); AST (SGOT) 18 U/L (17-59); Albumin 4.4 g/dl (3.5-5.0); Alkaline Phosphatase 82 U/L (38-126); Blood Urea Nitrogen 7 mg/dl (9-20); Calcium 9.3 mg/dl (8.4-10.2); Carbon Dioxide 28 mmol/L (22-30); Chloride 106 mmol/L (98-107); Estimated Creatinine Clearance > 125 ml/min; Glucose 98 mg/dl (70-99); Potassium 4.5 mmol/L (3.5-5.1); Sodium 137 mmol/L (135-145); Total Protein 6.8 g/dl (6.3-8.2); eGFR > 60.00
[2025-07-27 13:16] VITALS: BP 126/82
== END 2025-07-27 13:17 | disposition home or self-care (01) ==
LOC: EMR 07:47
PROVIDERS: Physician Assistant; EMERGENCY PHYSICIAN Emergency Medicine
DX: K61.0 Anal abscess (principal); F17.200 Nicotine dependence, unspecified, uncomplicated
CPT/HCPCS: 99284; 72193; 80053; 85025; Q9967